=== PATIENT | male | born 1990 | race Caucasian/White ===

== ENCOUNTER 2018-11-10 02:12 | Emergency (ER) | payer SELFPAY ==
[~2018-11-10] VITALS: Ht 177.8 cm; Wt 83.9 kg
[2018-11-10 02:14] VITALS: BP 147/88
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
[2018-11-10] MEDS ORDERED: hydrALAZINE 20 MG/ML VIAL IM ONE (02:25)
[2018-11-10 02:30] VITALS: BP 147/88
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
== END 2018-11-10 02:30 ==
LOC: MED 02:12
DX: Z02.89 Encounter for other administrative examinations (principal); R03.0 Elevated blood-pressure reading, without diagnosis of hypertension; V47.5XXA Car driver injured in collision with fixed or stationary object in traffic accident, initial encounter; Y93.89 Activity, other specified; Y92.411 Interstate highway as the place of occurrence of the external cause; Y99.8 Other external cause status
CPT/HCPCS: 99283